=== PATIENT | male | born 1960 | race African-American/Black ===

== ENCOUNTER 2022-08-09 19:56 | Emergency (ER) | payer OTHER ==
[2022-08-09] VITALS (12 sets, daily range): BP systolic 128–165; BP diastolic 47–88
[~2022-08-09] VITALS: Ht 185.4 cm; Wt 95.0 kg
[~2022-08-09 19:56] MED LIST: ANTI-FUNGAL12 EX; DANDRUFF11 EX; DEPAKENE250 MG OR; FLUOXETINE20 M2 OR; QVAR80 MCG IN; REMERON30 MG OR; SIMVASTATIN40 MG OR; VENTOLIN HFA IN; ZESTRIL20 MG OR
[2022-08-09 21:02] LABS: BASO% 0.4 % (0-3); HEMOGLOBIN 13.1 g/dl (14.0-18.0); IMMATURE GRANULOCYTES 0.3 % (0.0-5.0); MEAN CORPUSCULAR HGB 26.5 pG CALC (26.0-32.0); MEAN CORPUSCULAR HGB CONC 33.6 g/dL CAL (32.0-36.0); MONO% 11.6 % (2-13); NEUT# 7.73 thou/uL (1.82-7.42); NEUT% 78.7 % (42-76); RED BLOOD COUNT 4.94 mill/uL (4.70-6.10); RED CELL DISTRI WIDTH 16.7 % (11.5-15.5)
[2022-08-09 21:07] LABS: MEAN CELL VOLUME 78.9 fL CALC (80.0-100.0)
[2022-08-09 21:14] LABS: ALBUMIN 3.9 g/dL (3.2-5.0); BUN 30 mg/dL (8-23); BUN/CREATININE RATIO 21 (12-20 (CALC)); CHLORIDE 98 mmol/l (95-108); CREATININE 1.5 mg/dL (0.7-1.3); GFR FOR AFR.AMER. 57 ML/MIN (>=60 (CALC)); GFR OTHER RACES 47 ML/MIN (>=60 (CALC)); POTASSIUM 5.1 mmol/l (3.5-5.1); TOTAL PROTEIN 8.2 g/dL (6.3-8.2)
[2022-08-09 21:22] LABS: ANION GAP 13 (6-22 (CALC)); CARBON DIOXIDE 25 mmol/l (22-30); SODIUM 131 mmol/l (137-146)
[2022-08-09 21:23] LABS: ALKALINE PHOSPHATASE 1155 u/l (38-126); BILIRUBIN, TOTAL 19.8 mg/dL (0.2-1.3); SGOT/AST 351 u/l (19-48)
[2022-08-10] VITALS (30 sets, daily range): BP systolic 124–167; BP diastolic 72–95
[2022-08-10 03:25] LABS: URINE BILIRUBIN - DIPSTICK LARGE (NEGATIVE); URINE COLOR AMBER; URINE GLUCOSE - DIPSTICK NEGATIVE (NEGATIVE); URINE KETONE TRACE mg/dL (NEGATIVE)
[2022-08-10 03:26] LABS: URINE BLOOD DIPSTICK SMALL (NEGATIVE); URINE NITRITE - DIPSTICK POSITIVE (Negative); URINE PH 5.5 (4.5-8.0); URINE PROTEIN - DIPSTICK 5.5 mg/dL (NEG-TRACE); URINE SPECIFIC GRAVITY 1.025
[2022-08-10 03:27] LABS: URINE BACTERIA MODERATE hpf; URINE EPITHELIAL CELLS FEW EPI/hpf (0-FEW); URINE LEUK ESTERASE NEGATIVE (NEGATIVE)
[2022-08-10 03:28] LABS: URINE COARSE GRANULAR CAST FEW lpf; URINE FINE GRAN CAST FEW lpf
[2022-08-10 03:43] LABS: INTERNATIONAL NORMALIZED RATIO 1.9 RATIO (0.7-1.3)
[2022-08-10 04:01] LABS: AMYLASE 67 u/l (30-110); LIPASE 104 u/l (23-300)
== END 2022-08-10 10:30 | disposition short-term general hospital (02) | DRG 299 ==
LOC: ED 19:56
PROVIDERS: Emergency Medicine
PROC: 05HM33Z Insertion of Infusion Device into Right Internal Jugular Vein, Percutaneous Approach (ICD-10-PCS; principal; 2022-08-09)
PROC: B543ZZA Ultrasonography of Right Jugular Veins, Guidance (ICD-10-PCS; 2022-08-09)
DX: I82.402 Acute embolism and thrombosis of unspecified deep veins of left lower extremity (principal); J18.9 Pneumonia, unspecified organism; R18.8 Other ascites; C78.00 Secondary malignant neoplasm of unspecified lung; C78.7 Secondary malignant neoplasm of liver and intrahepatic bile duct; R19.09 Other intra-abdominal and pelvic swelling, mass and lump; R63.4 Abnormal weight loss; R22.43 Localized swelling, mass and lump, lower limb, bilateral
CPT/HCPCS: J1644; Q9967